=== PATIENT | female | born 1980 | race Caucasian/White ===

== ENCOUNTER 2016-08-03 10:01 | Emergency (ER) | payer OTHER ==
[2016-08-03 11:10] VITALS: BP 111/81
--- NOTE | 2016-08-03 11:41 | UC ---
Throat Pain/Nasal Kalpesh HPI - HPI Summary HPI Summary: Sore throat earlier in the week, daughter had URi, has had a very stressful week as brother committed suicide--- - History of Current Complaint Chief Complaint: UCRespiratory Stated Complaint: SORE THROAT Time Seen by Provider: 08/03/16 11:39 Hx Obtained From: Patient Hx Last Menstrual Period: 07/21/16 ?: No Onset/Duration: Sudden Onset, Lasting Days - 4, Still Present Severity: Mild Pain Intensity: 3 Pain Scale Used: 0-10 Numeric Cough: Nonproductive Associated Signs & Symptoms: Positive: Sinus Discomfort, Nasal Discharge - Allergies/Home Medications Allergies/Adverse Reactions: Allergies Allergy/AdvReac Type Severity Reaction Status Date / Time Penicillins [PCN] Allergy Rash Verified 08/03/16 11:10 Home Medications: Home Medications Liraglutide (NF) [Victoza (NF)] 0.6 mg SUBCUT DAILY 08/03/16 [History Confirmed 08/03/16] Ranitidine TAB (NF) [Zantac TAB (NF)] 150 mg PO BID 08/03/16 [History Confirmed 08/03/16] metFORMIN* [Glucophage*] 500 mg PO BID 08/03/16 [History Confirmed 08/03/16] PMH/Surg Hx/FS Hx/Imm Hx Previously Healthy: No Endocrine History Of: Reports: Diabetes - non insulin dependent GI/ History Of: Reports: Gastroesophageal Reflux - Surgical History Surgical History: Yes Surgery Procedure, Year, and Place: x1 c section - Family History Known Family History: Positive: Other - deperssion - Social History Occupation: Unemployed Lives: With Family Alcohol Use: None Substance Use Type: None Smoking Status (MU): Heavy Every Day Tobacco Smoker Amount Used/How Often: 5 cigs per day Length of Time of Smoking/Using Tobacco: started age 13 Have You Smoked in the Last Year: Yes Household Exposure Type: Cigarettes Cessation Counseling: Counseled 3+Min - 10 Min Review of Systems Constitutional: Fatigue Skin: Negative Eyes: Negative ENT: Sore Throat Respiratory: Cough Cardiovascular: Negative Gastrointestinal: Negative Genitourinary: Negative Motor: Negative Neurovascular: Negative Musculoskeletal: Negative Neurological: Negative Psychological: Negative All Other Systems Reviewed And Are Negative: Yes Physical Exam Triage Information Reviewed: Yes Appearance: Well-Appearing, Well-Nourished, Obese Vital Signs: Initial Vital Signs Temp 98.4 F 08/03/16 11:07 Pulse 102 08/03/16 11:07 Resp 16 08/03/16 11:07 BP 111/81 08/03/16 11:07 Pulse Ox 96 08/03/16 11:07 Eye Exam: Normal Eyes: Positive: Conjunctiva Clear ENT Exam: Normal ENT: Positive: Normal ENT inspection, Hearing grossly normal, Pharynx normal, TMs normal. Negative: Nasal congestion, Nasal drainage, Tonsillar swelling, Tonsillar exudate, Trismus, Muffled/hoarse voice Neck exam: Normal Neck: Positive: Supple, Nontender, No Lymphadenopathy Respiratory Exam: Normal Respiratory: Positive: Chest non-tender, Lungs clear, Normal breath sounds, No respiratory distress Cardiovascular Exam: Normal Cardiovascular: Positive: RRR, No Murmur, Pulses Normal, Brisk Capillary Refill Musculoskeletal Exam: Normal Musculoskeletal: Positive: Strength Intact, ROM Intact, No Edema Neurological Exam: Normal Neurological: Positive: Alert, Muscle Tone Normal Psychological Exam: Normal Psychological: Positive: Normal Response To Family, Age Appropriate Behavior Skin Exam: Normal Throat Pain/Nasal Course/Dx - Course Course Of Treatment: nicotine cesastion information, rest, tylenol/ibuprofen follow with pcp - Differential Dx/Diagnosis Differential Diagnosis/HQI/PQRI: Influenza, Otitis Media, Pharyngitis, Sinusitis , URI Provider Diagnoses: URI Discharge - Discharge Plan Condition: Stable Disposition: HOME Patient Education Materials: How to Stop Smoking (ED), Cigarette Smoking and Your Health (GEN), Upper Respiratory Infection (ED), Secondhand Smoke Exposure in Children (ED) Referrals: Alena Pineda MD [Primary Care Provider] - If Needed
== END 2016-08-03 12:27 | disposition home or self-care (01) ==
LOC: UCCORT 10:01
DX: J06.9 Acute upper respiratory infection, unspecified (principal); E11.9 Type 2 diabetes mellitus without complications; E66.9 Obesity, unspecified; F17.210 Nicotine dependence, cigarettes, uncomplicated; Z88.0 Allergy status to penicillin
CPT/HCPCS: 99211; G0463

== ENCOUNTER 2016-10-26 10:51 | Emergency (ER) | payer OTHER ==
[2016-10-26 12:42] VITALS: BP 128/79
[2016-10-26] MEDS ORDERED: Ibuprofen TAB* 600 MG PO ONE (12:52)
--- NOTE | 2016-10-26 13:30 | RAD ---
Indication: Right shoulder injury. 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 There is no fracture noted. No other bone or joint abnormality is noted. IMPRESSION: No fracture of the right shoulder is present.
--- NOTE | 2016-10-26 14:04 | UC ---
Shoulder Pain HPI - HPI Summary HPI Summary: has fallen on to shoulder 3 times in the past few months-last night fell and has pain in right posterior shoulder - History of Current Complaint Chief Complaint: UCUpperExtremity Stated Complaint: RIGHT SHOULDER PAIN Time Seen by Provider: 10/26/16 12:48 Hx Obtained From: Patient Hx Last Menstrual Period: due this Saturday ?: No Onset/Duration: Sudden Onset, Lasting Days - 1, Still Present Timing: Constant Severity Initially: Mild Severity Currently: Mild Location Of Pain: Is Discrete @ - posterior right shoulder Pain Intensity: 4 Pain Scale Used: 0-10 Numeric Character: Aching Aggravating Factor(s): Movement Alleviating Factor(s): Rest Associated Signs And Symptoms: Positive: Negative Related History: Dominant Hand Right - Allergies/Home Medications Allergies/Adverse Reactions: Allergies Allergy/AdvReac Type Severity Reaction Status Date / Time Albiglutide [From Tanzeum] Allergy See Comment Verified 10/26/16 12:43 Cephalexin [From Keflex] Allergy Rash Verified 10/26/16 12:43 Penicillins [PCN] Allergy Rash Verified 08/03/16 11:10 Sorbitan [From Tanzeum] Allergy See Comment Verified 10/26/16 12:43 Home Medications: Home Medications Ferrous Sulfate TAB* 325 mg PO BID 10/26/16 [History Confirmed 10/26/16] Levothyroxine TAB* [Synthroid TAB*] 200 mcg PO DAILY 10/26/16 [History Confirmed 10/26/16] Pravastatin Sodium [Pravachol] 80 mg PO DAILY 10/26/16 [History Confirmed ] PMH/Surg Hx/FS Hx/Imm Hx Previously Healthy: No Endocrine History Of: Reports: Diabetes - non insulin dependent GI/ History Of: Reports: Gastroesophageal Reflux - Surgical History Surgical History: Yes Surgery Procedure, Year, and Place: x1 c section - Family History Known Family History: Positive: Other - deperssion - Social History Occupation: Employed Full-time Lives: With Family Alcohol Use: None Substance Use Type: None Smoking Status (MU): Heavy Every Day Tobacco Smoker Amount Used/How Often: 5 cigs per day Length of Time of Smoking/Using Tobacco: started age 13 Have You Smoked in the Last Year: Yes Household Exposure Type: Cigarettes Cessation Counseling: Patient Advised to Stop Review of Systems Constitutional: Negative Skin: Negative Eyes: Negative ENT: Negative Respiratory: Negative Cardiovascular: Negative Gastrointestinal: Negative Genitourinary: Negative Motor: Decreased ROM - right shoulder Neurovascular: Negative Musculoskeletal: Negative, Arthralgia Neurological: Negative Psychological: Negative All Other Systems Reviewed And Are Negative: Yes Physical Exam Triage Information Reviewed: Yes Appearance: Well-Appearing, Pain Distress - mild, Obese Vital Signs: Initial Vital Signs Temp 98.1 F 10/26/16 12:39 Pulse 90 10/26/16 12:39 Resp 14 10/26/16 12:39 BP 128/79 10/26/16 12:39 Pulse Ox 99 10/26/16 12:39 Vital Signs Reviewed: Yes Eye Exam: Normal Eyes: Positive: Conjunctiva Clear ENT Exam: Normal ENT: Positive: Normal ENT inspection, Hearing grossly normal, Nasal drainage. Negative: Nasal congestion, Trismus, Muffled/hoarse voice Dental Exam: Normal Neck exam: Normal Neck: Positive: Supple, Nontender, No Lymphadenopathy Respiratory Exam: Normal Respiratory: Positive: Chest non-tender, Lungs clear, Normal breath sounds, No respiratory distress, No accessory muscle use Cardiovascular Exam: Normal Cardiovascular: Positive: RRR, No Murmur, Pulses Normal, Brisk Capillary Refill Musculoskeletal Exam: Normal Musculoskeletal: Positive: No Edema, Strength Limited @ - right shoulder, ROM Limited @ - right shoulder Neurological Exam: Normal Neurological: Positive: Alert, Muscle Tone Normal Psychological Exam: Normal Skin Exam: Normal Diagnostics - Radiology No standard instances Xray Interpretation: No Acute Changes Radiology Interpretation Completed By: Radiologist Shoulder Course/Dx - Course Assessment/Plan: ibuprofen rice, sling, follow with PCP if not resolved in 5 days - Differential Dx/Diagnosis Differential Diagnosis/HQI/PQRI: Contusion, Rotator Cuff Injury, Sprain, Strain Provider Diagnoses: Right shoulder contusion Discharge - Discharge Plan Condition: Stable Disposition: HOME Patient Education Materials: Ibuprofen (By mouth), Contusion in Adults (ED), Shoulder Pain (ED) Referrals: Alena Pineda MD [Primary Care Provider] - 5 Days
== END 2016-10-26 13:50 | disposition home or self-care (01) ==
LOC: UCCORT 10:51
DX: S40.011A Contusion of right shoulder, initial encounter (principal); W19.XXXA Unspecified fall, initial encounter; Z91.81 History of falling; Y93.9 Activity, unspecified; Y92.9 Unspecified place or not applicable; E11.9 Type 2 diabetes mellitus without complications; K21.9 Gastro-esophageal reflux disease without esophagitis; E66.9 Obesity, unspecified; Z88.1 Allergy status to other antibiotic agents; Z88.0 Allergy status to penicillin; Z88.8 Allergy status to other drugs, medicaments and biological substances; F17.210 Nicotine dependence, cigarettes, uncomplicated
CPT/HCPCS: 99212; A9270-GY; G0463

== ENCOUNTER 2017-03-23 09:57 | Emergency (ER) | payer OTHER ==
[2017-03-23 11:26] VITALS: BP 139/73
--- NOTE | 2017-03-23 11:50 | UC ---
Truncal Trauma HPI - HPI Summary HPI Summary: Patient woke up this morning with a sharp pain in the left rib cage, she slept on her side, denies any lightheadness, palpitations, arm pain. states there was improvement in pain with shower and now that she has been up moving. - History Of Current Complaint Chief Complaint: UCGeneralIllness Stated Complaint: PULLED MUSCLE Time Seen by Provider: 03/23/17 11:32 Hx Obtained From: Patient Hx Last Menstrual Period: 03/23/17 ?: No Onset/Duration: Sudden Onset, Lasting Hours Severity Initially: Moderate Severity Currently: Mild Mechanism Of Injury: Other - no trauma or injury noted Aggravating Factor(s): Deep Breathing Alleviating factor(s): Other - heat - Allergies/Home Medications Allergies/Adverse Reactions: Allergies Allergy/AdvReac Type Severity Reaction Status Date / Time Albiglutide [From Tanzeum] Allergy See Comment Verified 03/23/17 11:19 Cephalexin [From Keflex] Allergy Rash Verified 03/23/17 11:19 Penicillins [PCN] Allergy Rash Verified 03/23/17 11:19 Sorbitan [From Tanzeum] Allergy See Comment Verified 03/23/17 11:19 PMH/Surg Hx/FS Hx/Imm Hx Previously Healthy: Yes - Surgical History Surgical History: Yes Surgery Procedure, Year, and Place: x1 c section - Family History Known Family History: Positive: Other - deperssion - Social History Occupation: Employed Full-time Alcohol Use: None Substance Use Type: None Smoking Status (MU): Heavy Every Day Tobacco Smoker Amount Used/How Often: 1/2 PPD Length of Time of Smoking/Using Tobacco: started age 13 Have You Smoked in the Last Year: Yes Household Exposure Type: Cigarettes - Immunization History Most Recent Influenza Vaccination: feb 2017 Review of Systems Constitutional: Negative Skin: Negative Eyes: Negative ENT: Negative Respiratory: Negative Cardiovascular: Negative Gastrointestinal: Negative Genitourinary: Negative Motor: Negative Neurovascular: Negative Musculoskeletal: Arthralgia, Myalgia Neurological: Negative Psychological: Negative Is Patient Immunocompromised?: No All Other Systems Reviewed And Are Negative: Yes Physical Exam Triage Information Reviewed: Yes Appearance: Well-Appearing, Well-Nourished, Pain Distress Vital Signs: Initial Vital Signs Temp 97.4 F 03/23/17 11:20 Pulse 84 03/23/17 11:20 Resp 16 03/23/17 11:20 BP 139/73 03/23/17 11:20 Pulse Ox 100 03/23/17 11:20 Vital Signs Reviewed: Yes Eye Exam: Normal ENT Exam: Normal Dental Exam: Normal Neck exam: Normal Respiratory Exam: Normal Respiratory: Positive: Chest non-tender, Lungs clear, Normal breath sounds Cardiovascular Exam: Normal Cardiovascular: Positive: RRR, No Murmur, Pulses Normal Abdominal Exam: Normal Abdomen Description: Positive: Nontender, No Organomegaly, Soft Bowel Sounds: Positive: Present Musculoskeletal: Positive: Strength Intact, ROM Intact, No Edema, Other: - cannot replicate pain at this time Neurological Exam: Normal Psychological Exam: Normal Skin Exam: Normal Truncal Trauma Course/Dx - Course Course Of Treatment: hx obtained, exam performed ,meds reviewed, treated for muscle spasm - Differential Dx/Diagnosis Differential Diagnosis/HQI/PQRI: Chest Wall Contusion, Rib Fracture Provider Diagnoses: muscle strain of left side Discharge - Discharge Plan Condition: Stable Disposition: HOME Prescriptions: Cyclobenzaprine HCl [Flexeril 5 mg (NF)] 5 mg PO TID PRN #27 tab PRN Reason: Spasms Patient Education Materials: Muscle Strain (ED) Referrals: Alena Pineda MD [Primary Care Provider] - Additional Instructions: 1. take the medication as needed for pain and spasm 2. Heat and stretch the rib cage multiple times a day 3. follow up if not improving in a few days.
== END 2017-03-23 11:56 | disposition home or self-care (01) ==
LOC: UCCORT 09:57
DX: S29.011A Strain of muscle and tendon of front wall of thorax, initial encounter (principal); X58.XXXA Exposure to other specified factors, initial encounter; Y93.9 Activity, unspecified; Y92.9 Unspecified place or not applicable; Y99.9 Unspecified external cause status; Z88.1 Allergy status to other antibiotic agents; Z88.0 Allergy status to penicillin; Z88.8 Allergy status to other drugs, medicaments and biological substances; F17.210 Nicotine dependence, cigarettes, uncomplicated
CPT/HCPCS: 99212; G0463

== ENCOUNTER 2018-08-28 09:44 | Emergency (ER) | payer OTHER ==
[2018-08-28 10:23] VITALS: BP 143/76
--- NOTE | 2018-08-28 10:49 | UC ---
Throat Pain/Nasal Kalpesh HPI - History of Current Complaint Chief Complaint: UCRespiratory Stated Complaint: SINUS CONCERN Time Seen by Provider: 08/28/18 10:29 Hx Last Menstrual Period: last month Pain Intensity: 0 - Allergies/Home Medications Allergies/Adverse Reactions: Allergies Allergy/AdvReac Type Severity Reaction Status Date / Time albiglutide [From Tanzeum] Allergy redness Verified 08/28/18 10:41 and swelling at injection site cephalexin [From Keflex] Allergy Rash Verified 08/28/18 10:44 Penicillins Allergy Rash Verified 08/28/18 10:44 sorbitan part of tanzeum Allergy redness Uncoded 08/28/18 10:43 and swelling at injection site Home Medications: Home Medications Cetirizine* [ZyrTEC 10 MG TAB*] 10 mg PO DAILY 08/28/18 [History Confirmed 08/28] Dextromethorphn/Acetaminoph/Cp [Vicks Nyquil Cold & Flu N] 1 liq PO QPM PRN [History Confirmed 08/28/18] Ferrous Sulfate 324 mg PO BID 08/28/18 [History Confirmed 08/28/18] Phenylephrine/Dm/Acetaminop/GG [Vicks Dayquil Severe Cold] 1 liq PO DAILY PRN [History Confirmed 08/28/18] glipiZIDE [Glipizide ER] 5 mg PO DAILY 08/28/18 [History Confirmed 08/28/18] PMH/Surg Hx/FS Hx/Imm Hx Previously Healthy: Yes - Surgical History Surgical History: Yes Surgery Procedure, Year, and Place: x1 c section - Family History Known Family History: Positive: Other - depression - Social History Alcohol Use: None Substance Use Type: None Smoking Status (MU): Former Smoker Amount Used/How Often: 1/2 PPD Length of Time of Smoking/Using Tobacco: started age 13 Have You Smoked in the Last Year: No When Did the Patient Quit Smoking/Using Tobacco: 1.5 yrs Household Exposure Type: Cigarettes - Immunization History Most Recent Influenza Vaccination: feb 2017 Review of Systems All Other Systems Reviewed And Are Negative: Yes Constitutional: Positive: Chills, Fatigue Skin: Positive: Negative Eyes: Positive: Negative ENT: Positive: Sore Throat, Ear Ache, Nasal Discharge, Sinus Congestion Respiratory: Positive: Cough Cardiovascular: Positive: Negative Gastrointestinal: Positive: Negative Genitourinary: Positive: Negative Motor: Positive: Negative Neurovascular: Positive: Negative Musculoskeletal: Positive: Negative Neurological: Positive: Headache Psychological: Positive: Negative Is Patient Immunocompromised?: No Physical Exam Triage Information Reviewed: Yes Appearance: Well-Nourished, Ill-Appearing, Pain Distress Vital Signs: Initial Vital Signs Temp 98 F 08/28/18 10:17 Pulse 90 08/28/18 10:17 Resp 18 08/28/18 10:17 BP 143/76 08/28/18 10:17 Pulse Ox 100 08/28/18 10:17 Vital Signs Reviewed: Yes ENT: Positive: Pharyngeal erythema, Nasal congestion, Nasal drainage, TMs normal , Sinus tenderness Dental Exam: Normal Neck exam: Normal Neck: Positive: Supple, Nontender, No Lymphadenopathy Respiratory Exam: Normal Respiratory: Positive: Chest non-tender, Lungs clear, Normal breath sounds Cardiovascular Exam: Normal Cardiovascular: Positive: RRR, No Murmur, Pulses Normal Abdominal Exam: Normal Musculoskeletal Exam: Normal Neurological Exam: Normal Psychological Exam: Normal Skin Exam: Normal Throat Pain/Nasal Course/Dx - Course Course Of Treatment: hx obtained, exam performed ,meds reviewed, treated for sinusitis - Differential Dx/Diagnosis Differential Diagnosis/HQI/PQRI: Influenza, Laryngitis, Otitis Media, Pharyngitis, Sinusitis, URI Provider Diagnosis: Sinusitis, acute Discharge - Sign-Out/Discharge Documenting (check all that apply): Patient Departure All imaging exams completed and their final reports reviewed: No Studies - Discharge Plan Condition: Stable Disposition: HOME Prescriptions: Azithromyxin DANNY (NF) [Z-Danny (Zithromax) 250 mg tabs #6] 2 tab PO .TODAY, THEN 1 DAILY #6 tab Patient Education Materials: Rhinosinusitis (ED) Referrals: Samra Mock MD [Primary Care Provider] - Additional Instructions: 1. take the medication as prescribed. 2. Increse fluid intake 3. Nasal saline daily to help clear sinus passages. - Billing Disposition and Condition Condition: STABLE Disposition: Home
== END 2018-08-28 10:54 | disposition home or self-care (01) ==
LOC: UCCORT 09:44
DX: J01.90 Acute sinusitis, unspecified (principal); H92.09 Otalgia, unspecified ear; Z88.8 Allergy status to other drugs, medicaments and biological substances; Z88.1 Allergy status to other antibiotic agents; Z88.0 Allergy status to penicillin; Z87.891 Personal history of nicotine dependence
CPT/HCPCS: 99212; G0463

== ENCOUNTER 2018-11-29 13:37 | Emergency (ER) | payer OTHER ==
--- OUTSIDE RECORDS SUMMARY | 2018-11-29 13:46 | XMS REPORT | Continuity of Care Document ---
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 Samra Mock MD Primary Care Physician Unavailable Payers Date Identification Numbers Payment Provider Subscriber Policy Number: [id number] [employer] Iesha Luciano PayID: [id number] [address] [place] [address] Expires: 2016 Policy Number: [id number] [facility] Iesha Luciano PayID: [id number] [address] [address] [place] [address] Family History Date Family Member(s) Observation Comments Father due to Lung Cancer () - age 56 Mother Alive Mother Diabetes Mother Hypertension First Daughter Alive First Daughter Healthy First Brother Alive First Brother Sleep apnea First Sister Alive First Sister 41 First Sister High Cholesterol First Sister wears cls Second Sister Alive Second Sister Thyroid Disease Paternal Grandfather Glaucoma Maternal Grandmother Diabetic Retinopathy Social History Type Date Description Comments Sex Unknown Marital Status Single 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 Quit 05/28/17 Smoking Status Reviewed: 11/14/18 Patient is a former smoked maybe 10 smoker cigarettes a day @ the most x 20 years. Quit 05/28/17 Allergies, Adverse Reactions, Alerts Active Allergies Reaction Severity Comments Date Tanzeum 10/19/2016 Penicillin G 10/19/2016 Keflex 10/19/2016 Medications Active Medications SIG Qnty Indications Ordering Provider Date Victoza Gissell, Abeba, 18mg/3ML Solution PA Pen-Inject Levothyroxine Sodium Take 1 Tablet By Unknown 200mcg Mouth Every Day Tablets On An Empty Stomach Ranitidine HCL Take 1 Tablet By Unknown 150mg Mouth Twice A Day Tablets Metformin HCL Take 1 Tablet By Unknown 1000mg Mouth Twice A Day Tablets Atorvastatin Calcium Take 1 Tablet By Unknown 80mg Mouth AT Bedtime Tablets History Medications Tanzeum To Inject Once Weekly as Unknown - 10/19/2016 30mg Pen Directed Procedures Date Code Description Status 11/14/2018 11510 Eye Exam Est Patient Comprehensive Completed 11/08/2017 29126 Eye Exam Est Patient Comprehensive Completed 10/19/2016 83180 Eye Exam New Patient Comprehensive Completed 10/19/2016 23968 Eye Exam New Patient Comprehensive Completed 03/23/2011 24543 Anesthesia, Hysteroscopy, Hystersalpingography Completed Plan of Treatment Future Appointment(s):11/20/2019 8:30 am - Jose Lane MD at [email or web address]/ 02/2019 9:00 am - Enzo Albarado DPM at [id number]/14/2018 - Jose Lane MDE11.9 Type 2 diabetes mellitus without complicationsComments:- no sign of diabetic retinopathy- no macular edema- no neovascularization- glycemic, bp, lipid, weight control- potential for retinopathy, vision loss, and potential need for treatment- letter to primaryFollow up:1 year exam; [id number] Dry eye syndrome of bilateral lacrimal glandsComments:- if bothersome, please consider: - warm compresses - artificial tears both eyes - consider ointment at night - can consider punctal occlusion or restasis
[2018-11-29 13:53] VITALS: BP 134/89
--- NOTE | 2018-11-29 14:02 | UC ---
Respiratory Complaint HPI - HPI Summary HPI Summary: worsening sinus pain cough nasal drainage and congestion - History of Current Complaint Chief Complaint: UCRespiratory Stated Complaint: COUGH,CONGESTION Time Seen by Provider: 11/29/18 13:55 Hx Obtained From: Patient Hx Last Menstrual Period: ~11/08/18 ?: No Onset/Duration: Gradual Onset, Lasting Weeks - 1, Still Present Timing: Constant Pain Intensity: 0 Pain Scale Used: 0-10 Numeric Character: Cough: Productive Aggravating Factors: Deep Breaths, Recumbent Position Alleviating Factors: Nothing Associated Signs And Symptoms: Positive: Nasal Congestion, Sinus Discomfort - Allergies/Home Medications Allergies/Adverse Reactions: Allergies Allergy/AdvReac Type Severity Reaction Status Date / Time albiglutide [From Tanzeum] Allergy redness Verified 11/29/18 13:48 and swelling at injection site cephalexin [From Keflex] Allergy Rash Verified 11/29/18 13:48 Penicillins Allergy Rash Verified 11/29/18 13:48 sorbitan part of tanzeum Allergy redness Uncoded 11/29/18 13:48 and swelling at injection site PMH/Surg Hx/FS Hx/Imm Hx Endocrine History: Diabetes, Hypothyroidism, Dyslipidemia GI/ History: Gastroesophageal Reflux - Surgical History Surgical History: Yes Surgery Procedure, Year, and Place: , 2012, [place] - Family History Known Family History: Positive: Other - depression - Social History Occupation: Employed Full-time Lives: With Family Alcohol Use: None Substance Use Type: None Smoking Status (MU): Former Smoker Type: Cigarettes Amount Used/How Often: 1/2 PPD Length of Time of Smoking/Using Tobacco: ~1/2 PPD x 25 Years Have You Smoked in the Last Year: No When Did the Patient Quit Smoking/Using Tobacco: 05/28/18 Household Exposure Type: Cigarettes - Immunization History Most Recent Influenza Vaccination: feb 2017 Review of Systems All Other Systems Reviewed And Are Negative: Yes Constitutional: Positive: Fatigue Skin: Positive: Negative Eyes: Positive: Negative ENT: Positive: Ear Ache, Nasal Discharge, Sinus Congestion, Sinus Pain/ Tenderness Respiratory: Positive: Cough Cardiovascular: Positive: Negative Gastrointestinal: Positive: Negative Genitourinary: Positive: Negative Motor: Positive: Negative Neurovascular: Positive: Negative Musculoskeletal: Positive: Negative Neurological: Positive: Negative Psychological: Positive: Negative Is Patient Immunocompromised?: Yes Physical Exam Triage Information Reviewed: Yes Appearance: Ill-Appearing - mild, Pain Distress - mild, Obese Vital Signs: Initial Vital Signs Temp 98.3 F 11/29/18 13:46 Pulse 93 11/29/18 13:46 Resp 18 11/29/18 13:46 BP 134/89 11/29/18 13:46 Pulse Ox 100 11/29/18 13:46 Vital Signs Reviewed: Yes Eye Exam: Normal Eyes: Positive: Conjunctiva Clear ENT Exam: Normal ENT: Positive: Normal ENT inspection, Hearing grossly normal, Pharynx normal, Nasal congestion, Nasal drainage, TMs normal, Sinus tenderness, Uvula midline. Negative: Tonsillar swelling, Tonsillar exudate, Trismus, Muffled voice, Hoarse voice, Dental tenderness Dental Exam: Normal Neck exam: Normal Neck: Positive: Supple, Nontender, No Lymphadenopathy Respiratory Exam: Normal Respiratory: Positive: Chest non-tender, No respiratory distress, No accessory muscle use, Wheezing Cardiovascular Exam: Normal Cardiovascular: Positive: RRR, No Murmur, Pulses Normal, Brisk Capillary Refill Musculoskeletal Exam: Normal Musculoskeletal: Positive: Strength Intact, ROM Intact, No Edema Neurological Exam: Normal Neurological: Positive: Alert, Muscle Tone Normal Psychological Exam: Normal Skin Exam: Normal Respiratory Course/Dx - Course Course Of Treatment: aerochamber with mdi at home, flonase, zithromax, continue zyrtec follow with pcp prn - Differential Dx/Diagnosis Provider Diagnosis: Bronchospasm, Sinusitis Discharge - Sign-Out/Discharge Documenting (check all that apply): Patient Departure All imaging exams completed and their final reports reviewed: No Studies - Discharge Plan Condition: Stable Disposition: HOME Prescriptions: Azithromycin TAB* [Zithromax TAB (Z-DANNY) 250 mg #6 tabs] 2 tab PO .TODAY, THEN 1 DAILY #1 danny Fluticasone NASAL SPRAY 50MCG* [Flonase NASAL SPRAY 50MCG*] 2 spray BOTH NARES DAILY #1 btl Patient Education Materials: Rhinosinusitis (DC), Bronchospasm (ED), How to Use a Metered-Dose Inhaler and a Spacer (ED) Referrals: Samra Mock MD [Primary Care Provider] - If Needed - Billing Disposition and Condition Condition: STABLE Disposition: Home - Attestation Statements Provider Attestation: Per institutional requirements, I have reviewed the chart, however, I was not consulted specifically or made aware of this patient by the midlevel provider. I did not personally evaluate, interact with , or disposition this patient.
== END 2018-11-29 14:12 | disposition home or self-care (01) ==
LOC: UCCORT 13:37
DX: J98.01 Acute bronchospasm (principal); J32.9 Chronic sinusitis, unspecified; I10 Essential (primary) hypertension; Z87.891 Personal history of nicotine dependence
CPT/HCPCS: 99212; G0463